=== PATIENT | female | born 2000 | race African-American/Black ===

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

== ENCOUNTER 2024-12-30 04:25 | Observation (INO) | payer BC, SELFPAY ==
--- NOTE | 2024-12-30 06:03 | OBADM ---
This patient, Sacha Joe, admitted to the OB room Labor/Delivery/Recovery 104 for observation. Patient/family oriented to hospital policies and general routines including ID bracelet, bed and alarms, visiting hours, pain management, procedures, bathroom and other care routines, personal items, smoking policy, room service/diet, and visiting hours. Patient/Family are encouraged to report perceived risks to care and to ask questions if they do not understand what they are told or what they should do.
[2025-01-01 11:48] LABS: OBXCEM ROM Plus Negative (Negative)
--- NOTE | 2025-01-28 12:17 | PM.OBTRLD ---
OB - Triage/Final Diagnosis Visit Information Comments/Additional reasons for admission: I have assessed the risk for this patient, Sacha Joe, and determined that she would benefit from observation care. Evaluation Laboratory results: Laboratory Tests 12/30/24 04:45 Membranes Rupture Rom plus negative Final Diagnosis (1) False labor: Code(s): O47.9 - False labor, unspecified Status: Acute
== END 2024-12-30 06:13 | disposition home or self-care (01) ==
PROVIDERS: Admitting Provider Obstetrics & Gynecology; PCP Family Medicine; Visit Provider Obstetrics & Gynecology
DX: O47.1 False labor at or after 37 completed weeks of gestation (principal); Z3A.40 40 weeks gestation of pregnancy
CPT/HCPCS: 84112; G0378; G0379

== ENCOUNTER 2024-12-31 01:43 | Inpatient (IN) | payer BC, SELFPAY ==
[2024-12-30] VITALS (10 sets, daily range): BP systolic 129; BP diastolic 77; PULSE 61–91; O2SAT 97–100
[2024-12-31] VITALS (97 sets, daily range): BP systolic 98–168; BP diastolic 65–101; PULSE 41–149; TEMP 36.3–37.1; O2SAT 76–100; BMI 33.5
[2024-12-31 02:41] LABS: Hematocrit 32.3 % (37.0-47.0); Hemoglobin 10.8 g/dL (12.0-15.0); Immature Granulocyte Percent A 0.5 % (0-0.5); Lymphocytes Absolute Auto 1.73 K/mm3 (0.9-3.2); Mean Corpuscular HGB Conc 33.4 g/dl (32-36); Mean Corpuscular Hemoglobin 28.4 pg (26-34); Mean Corpuscular Volume 85.0 fl (80-100); Nucleated Red Blood Cells Absolute Auto 0.000 K/mm3 (0.0-0.012); Nucleated Red Blood Cells Perc 0.0 % (0.0-0.2); Platelet Count Result 169 k/mm3 (150-375); Red Blood Count 3.80 M/mm3 (4.2-5.4); White Blood Count 5.9 K/mm3 (4.5-10.0)
[2024-12-31 03:25] LABS: Syphilis IgG/IgM Antibody Non-Reactive (Nonreactive)
--- NOTE | 2024-12-31 04:03 | LDADM ---
This patient, Sacha Joe, was admitted to Labor/Delivery/Recovery 104 on 12/31/24 at 01:43. Plans for labor, pain management and were discussed with patient. Patient/family oriented to hospital policies and general routines including ID bracelet, bed and alarms, visiting hours, pain management, procedures, bathroom and other care routines, personal items, smoking policy, room service/diet and guest tray routines, infant security routines, and visiting hours. Patient/Family are encouraged to report perceived risks to care and to ask questions if they do not understand what they are told or what they should do. See OBIX for further documentation.
--- NOTE | 2024-12-31 07:23 | P.PNAN_ITS ---
Anes - Eval Pre Procedure Procedure: labor epidural Date/Time: 12/31/24 07:23 Surgeon: sharlene Preop Diagnosis: pain during labor Pre Op Diagnosis: Contractions Patient Data Age: 24 Gender: F Height: 1.6 m Weight: 86 kg Last Vital Signs Temp 37.1 C 12/31/24 06:28 Pulse 73 12/31/24 06:19 BP 115/81 12/31/24 06:19 Pulse Ox 98 12/30/24 05:57 Allergies Allergy/AdvReac Type Severity Reaction Status Date / Time No Known Allergies Allergy Verified 12/31/24 04:03 Home Medications ?Medication ?Instructions ?Recorded ?Confirmed ?Type vit no.95-ferrous 1 tablet PO DAILY 11/29/24 11/29/24 History fumarate 28 mg-folic acid 800 mcg tablet () Laboratory Tests 12/31/24 02:35 WBC 5.9 K/mm3 (4.5-10.0) RBC 3.80 L M/mm3 (4.2-5.4) Hgb 10.8 L g/dL (12.0-15.0) Hct 32.3 L % (37.0-47.0) MCV 85.0 fl (80-100) MCH 28.4 pg (26-34) MCHC 33.4 g/dl (32-36) RDW 13.8 % (11.5-14.5) Plt Count 169 k/mm3 (150-375) MPV 11.3 H fl (7.4-10.4) Immature Gran % (Auto) 0.5 % (0-0.5) Neut % (Auto) 57.1 % (45.5-73.1) Lymph % (Auto) 29.2 % (18.3-44.2) [place] % (Auto) 12.3 H % (2.6-8.5) Eos % (Auto) 0.7 % (0-4.4) Baso % (Auto) 0.2 % (0.2-1.2) Lymph # (Auto) 1.73 K/mm3 (0.9-3.2) [place] # (Auto) 0.7 H K/mm3 (0.1-0.6) Eos # (Auto) 0.0 K/mm3 (0-0.3) Baso # (Auto) 0.0 K/mm3 (0.0-0.1) Abs Immat Gran (auto) 0.03 K/mm3 (0.00-0.031) Absolute Neuts (auto) 3.4 K/mm3 (1.3-6.7) Absolute Nucleated RBC 0.000 K/mm3 (0.0-0.012) Nucleated RBC % 0.0 % (0.0-0.2) Syphilis IgG/IgM Ab Non-reactive (Nonreactive) Blood Type B Positive Antibody Screen Negative Patient hx anesthesia problems: none Family hx anesthesia problems: none Results Review: All pre-operative results and documents have been reviewed as part of the pre- operative evaluation. [facility] Past Medical History Medical History (Updated 12/31/24 @ 07:24 by Jonna Hodges CRNA) Obesity (BMI 30-39.9) Sacralization IUP (intrauterine ), incidental Family History Family History (Updated 11/29/24 @ 15:39 by Yumiko Reyes RN) Other No pertinent family history Social History Social History Smoking status: Never smoker Second hand tobacco smoke exposure: No Substance use: former Lack of Transportation: No Lack of Food: Never True Current Housing: I Have Housing Concerned About Future Housing: No Difficulty Paying Gas/Electric Bills: No Difficulty Paying for Meds: No Currently Unemployed: No Education: Master's Degree or Higher Difficulty w/ Childcare or Family Care: No Spiritual care concerns: No Exam Day of Procedure 12/31/24 07:23
--- NOTE | 2024-12-31 12:29 | WPDOBADMIT ---
Obstetrics - Admit Note Admission Note: record reviewed. No pertinent additions to the history and/or any subsequent changes in the physical findings that are not consistent with the expected course of the were found. Patient admitted in labor, SROM 2330. AROM of forebag, clear fluid. SVE /-2. Continue current management. Additions to the history and/or subsequent changes in the physical findings follow. None.
[2024-12-31] MEDS: OXYTOCIN 30 UNITS/NS 500 ML 30 UNITS/500 ML BAG IV CONT (16:38)
[2024-12-31] MEDS: LACTATED RINGERS 1,000 ML 125 ML IV CONT ×2 (16:38→20:09)
[2024-12-31] MEDS: AMPICILLIN SODIUM 2 GM in SODIUM CHLORIDE 0.9% IV 100 ML 200 ML IVPB (17:28)
[2024-12-31] MEDS: LIDOCAINE 1% LOCAL INJ 20 ML VIAL (21:55)
--- NOTE | 2024-12-31 22:09 | PM.OBPRVD ---
OB - Vaginal Delivery Note Procedure Delivery date: 12/31/24 Induction method: None Delivery augmentation: Rupture of Membranes and Pitocin Delivery monitor: External FHT and External Uterine Route of delivery: Episiotomy description: None Laceration Description: Periurethral and Perineal - 2nd Degree Delivery repair: vicryl Specimen: No Quantitative Blood Loss (ml): 350 Anesthesia type: Epidural Disposition: Floor Complications: No immediate complications (Mild shoulder dystocia relieved with Newman corkscrew maneuver and iglesia Hernandes)
[2024-12-31] MEDS: OXYTOCIN 30 UNITS/NS 500 ML 30 UNITS/500 ML BAG 125 UNITS IV CONT (22:59)
[2025-01-01] VITALS (7 sets, daily range): BP systolic 92–123; BP diastolic 60–80; PULSE 70–87; RESP 16–18; TEMP 36.6–37.3; O2SAT 98–99
--- NOTE | 2025-01-01 00:39 | OBPPTRN ---
Patient transferred to post room #282 via w/c. Support person present. Oriented to unit, room, information board, rooming in, admission packet and security measures. Patient verbalizes understanding.
[2025-01-01] MEDS: ACETAMINOPHEN 325 MG TABLET 650 MG PO ×2 (04:22→16:20)
[2025-01-01 05:03] LABS: Hematocrit 29.7 % (37.0-47.0); Hemoglobin 9.7 g/dL (12.0-15.0)
--- NOTE | 2025-01-01 08:51 | P.PNOB_ITS ---
OB - PN: Subj Subjective Date/time seen: 01/01/25 08:51 Interval history: pp day 1 no complaints doing well OB - PN: Obj Data Labs 01/01/25 04:11 Labs: Laboratory Results - last 24 hr 01/01/25 04:11 Hgb 9.7 L Hct 29.7 L OB - PN A/P Plan day: 1 Plan: routine care Time Spent With Patient Time: Total time spent is greater than 50% in coordination of care (as documented) at patient's floor/unit and/or counseling patient: Review of Systems 2 Review of Systems: All systems reviewed & are unremarkable except as noted in HPI and below Exam 2 Const: General: cooperative, healthy appearing and comfortable Chest: Chest palpation & inspection: normal inspection of the chest Resp: Effort & Inspection: normal respiratory effort Skin: General skin exam: normal color
[2025-01-01] MEDS: MULTIVIT/MIN/PREN/FOL AC/IRON TABLET 1 TAB PO (08:53)
[2025-01-01] MEDS: IBUPROFEN 600 MG TABLET PO (08:53)
[2025-01-01] MEDS: DOCUSATE SODIUM 100 MG CAPSULE PO ×2 (08:53→16:20)
--- NOTE | 2025-01-01 11:05 | PC.NURSE ---
Consulted with patient to assess needs related to . Discussed with mother her successes, concerns and any questions she has. We reviewed working with the , supporting breast, protecting her nipples with an optimal deep latch, good positioning, and good hand washing. Encouraged understanding the benefits of skin to skin, responding to feeding cues, frequencies of feeding 8-12 times in 24 hours (approximately 2-3 hours), duration of feedings, milk production, intake/output feeding sheet and signs of adequate intake encouraging swallowing at the breast. Reviewed positioning and alignment, supporting breast, off-centered (asymmetrical latch) and leading with the chin with big, open, wide gape. latched optimally to the [right] breast in [cross cradle] position. Education given to the mother of how to visualize the suckling (with good rocking jaw motion) swallows (dropping of the lower jaw) and how to listen for drinking at the breast (the ka sound). The was [able] to maintain latch without discomfort to mother, she had had nipple tenderness with prior latches but this felt better. Nipple care reviewed with optimal latch, good positioning and using clean hands when touching her breast. Resources used to facilitate learning were used from the [visual handouts/ tool/mom and baby guide]. Mother voiced understanding of the education shared, to call for assistance if the infant does not latch or if there is discomfort with . Reported to the Primary RN.
--- NOTE | 2025-01-01 12:54 | WPDANLDPN2 ---
Anes-Prog Note L&D Date/Time: 01/01/25 12:54 Comfortable throughout: labor and delivery Neuraxial method: epidural Epidural/Spinal procedure site: clean & non-tender Neuro status: Neuro function grossly intact. Cardiovascular status: normal Respiratory status: normal Airway patency: baseline Mental status: baseline Post-Op hydration status: normal Vital Signs: Last Vital Signs Temp 37.0 C 01/01/25 12:00 Pulse 87 01/01/25 12:00 Resp 16 01/01/25 12:00 BP 114/60 01/01/25 12:00 Pulse Ox 98 01/01/25 12:00 O2 Del Method Room Air 01/01/25 12:00 Pain score (VAS): 0 I/O: Intake & Output 12/31/24 01/01/25 01/01/25 23:59 07:59 15:59 Intake Total 1000 0 Output Total 450 50 Balance 550 -50 0 Post-procedural complaints: none Patient feedback: Patient satisfied with anesthetic care.
[2025-01-02] MEDS: IBUPROFEN 600 MG TABLET PO (00:16)
[2025-01-02 07:25] VITALS: BP 123/83; PULSE 70; RESP 16; TEMP 36.5; O2SAT 99
--- NOTE | 2025-01-02 07:47 | P.PNOB_ITS ---
OB - PN: Subj Subjective Date/time seen: 01/02/25 07:47 Interval history: pp day 1 no complaints doing well Patient comments: no complaints, pain well controlled and tolerating diet OB - PN: Obj Data Labs 01/01/25 04:11 OB - PN A/P Plan day: 2 Plan: routine care and discharge home Time Spent With Patient Time: Total time spent is greater than 50% in coordination of care (as documented) at patient's floor/unit and/or counseling patient: Exam 2 Const: General: comfortable and no acute distress Resp: Effort & Inspection: normal respiratory effort Auscultation: no rales, no rhonchi and no wheezes Cardio: Rate: regular rate Heart sounds: no click, no murmurs and no rubs GI: GI Palp: Yes Soft to palpation and No Tenderness to palpation present (GI) Auscultation: normal bowel sounds Extrem: General: normal to inspection, no pedal edema and no calf tenderness
[2025-01-02] MEDS: DOCUSATE SODIUM 100 MG CAPSULE PO (08:35)
[2025-01-02] MEDS: MULTIVIT/MIN/PREN/FOL AC/IRON TABLET 1 TAB PO (08:35)
--- NOTE | 2025-01-02 09:20 | PC.NURSE ---
Consulted with mother concerning needs and she shared her ability to independently latch infant optimally without pain. Mother is feeding appropriately for growth of and understands stimulating to eat if needed. Infant has had appropriate feedings in the last 24 hours meets the outcomes for weight, output, blood sugar and jaundice at this time. Reinforced understanding of milk production, transition of milk, signs of adequate intake, transition of stool, prevention/relief of engorgement, plugged ducts, mastitis, responsive watching for feeding cues, the different methods of stimulating to breastfeed 1-3 hours after the start of the last feeding, community resources, and when to call a provider using the resource of the feeding sheet along with the mom and baby guide. Mother voiced understanding of the information shared, is confident to continue effectively her infant at home, when to call for assistance, denies any additional assistance or education at this time. Declined [facility] referral. Reported to the Primary RN.
--- NOTE | 2025-01-02 09:45 | PM.OBDSVD ---
DS: Admitting Diagnosis Discharge Date 01/02/2025 Admitting Diagnosis Term DS: Discharge Diagnosis Discharge Diagnosis Plan Term delivered OB - DS: Summary OB Procedures : None OB Procedures Intrapartum: Spontaneous Vag Delivery OB Procedures: : None Peripartum Data Laceration Description: Periurethral and Perineal - 2nd Degree Episiotomy description: None Time Spent with Patient Time attestation: Total time spent providing and/or coordinating discharge services: Discharge Plan Discharge Discharging Clinician: Sotero Dow Patient Disposition: Home Activity: pelvic rest Diet: regular Patient Instructions: Antibiotic Form Patient Language: Luxembourger Stand Alone Forms: General Discharge Information Follow-up/Referrals: Sotero Dow MD [Physician, [employer]] Discharge Medications: Continued PNV no.95-ferrous fumarate-FA [] 28 mg iron- 800 mcg tablet 1 tablet PO DAILY Date of admission: 12/31/24 01:43 Primary Care Provider: Beck,Darius Vail Admitting Provider: Ferny Rayo Attending physician on admission: Ferny Rayo Condition: Stable
[2025-01-03 13:47] VITALS: BP 136/74; PULSE 88; RESP 18; TEMP 37; O2SAT 100
== END 2025-01-02 14:48 | disposition home or self-care (01) | DRG 807 ==
LOC: ANHOB2 01-02 09:46 → ANHLDR 01-03 09:49
PROVIDERS: Admitting Provider Obstetrics & Gynecology; PCP Family Medicine; Visit Provider Obstetrics & Gynecology
DX: O69.81X0 Labor and delivery complicated by cord around neck, without compression, not applicable or unspecified (principal); Z37.0 Single live birth; Z3A.40 40 weeks gestation of pregnancy; O70.1 Second degree perineal laceration during delivery; O71.82 Other specified trauma to perineum and vulva; O66.0 Obstructed labor due to shoulder dystocia
CPT/HCPCS: 36415; 85014; 85018; 85025; 86593; 86850; 86900; 86901; A9270; J0290; J1200; J2003; J2590; J2795; J7120